=== PATIENT | male | born 1985 | race African-American/Black ===

== ENCOUNTER 2018-12-14 00:56 | Emergency (ER) | payer BC ==
--- NOTE | 2018-12-14 01:38 | ED ---
Skin Complaint - HPI Summary HPI Summary: Pt is a 33 y/o M presenting to the ED with a chief complaint of pain in his R thumb. He reports it being swollen and erythematous for the past two days. He has a hx of NIDDM but he does not frequently check his blood sugar. He denies any other medical history. - History of Current Complaint Chief Complaint: EDRashSkinAbscess Time Seen by Provider: 12/14/18 01:28 Stated Complaint: POSS INFECTION ON FINGER Hx Obtained From: Patient Onset/Duration: Started Days Ago, Still Present Skin Exposure Onset/Duration: Days Ago Timing: Constant, Lasting Days Onset Severity: Moderate Current Severity: Severe Pain Intensity: 9 Pain Scale Used: 0-10 Numeric Skin Location: Hand - R thumb Character: Swelling, Pain, Redness Aggravating Symptom(s): Touch Alleviating Symptom(s): Nothing Associated Signs & Symptoms: Negative Related History: Diabetes - Allergy/Home Medications Allergies/Adverse Reactions: Allergies Allergy/AdvReac Type Severity Reaction Status Date / Time No Known Allergies Allergy Verified 12/14/18 01:01 PMH/Surg Hx/FS Hx/Imm Hx Previously Healthy: Yes Endocrine/Hematology History: Reports: Hx Diabetes Cardiovascular History: Denies: Hx Hypertension Infectious Disease History: No Infectious Disease History: Denies: Traveled Outside the [place] in Last 30 Days - Family History Known Family History: Negative: Respiratory Disease - Social History Alcohol Use: None Hx Substance Use: No Substance Use Type: Reports: None Hx Tobacco Use: No Smoking Status (MU): Never Smoked Tobacco Review of Systems Positive: Myalgia - pain on R thumb Positive: Other - swelling and erythema to R thumb All Other Systems Reviewed And Are Negative: Yes Physical Exam - Summary Physical Exam Summary: VITAL SIGNS: Reviewed. GENERAL: Patient is a well-developed and nourished female who is lying comfortable in the stretcher. Patient is not in any acute respiratory distress. HEAD AND FACE: No signs of trauma. No ecchymosis, hematomas or skull depressions. No sinus tenderness. EYES: PERRLA, EOMI x 2, No injected conjunctiva, no nystagmus. EARS: Hearing grossly intact. Ear canals and tympanic membranes are within normal limits. MOUTH: Oropharynx within normal limits. NECK: Supple, trachea is midline, no adenopathy, no JVD, no carotid bruit, no c- spine tenderness, neck with full ROM. CHEST: Symmetric, no tenderness at palpation LUNGS: Clear to auscultation bilaterally. No wheezing or crackles. CVS: Regular rate and rhythm, S1 and S2 present, no murmurs or gallops appreciated. ABDOMEN: Soft, non-tender. No signs of distention. No rebound no guarding, and no masses palpated. Bowel sounds are normal. EXTREMITIES: FROM in all major joints, no edema, no cyanosis or clubbing. R thumb presents edema, tenderness, erythema, and is pruritic by the paronychia. NEURO: Alert and oriented x 3. No acute neurological deficits. Speech is normal and follows commands. SKIN: Dry and warm Triage Information Reviewed: Yes Vital Signs On Initial Exam: Initial Vitals Temp Pulse Resp BP Pulse Ox 97.9 F 86 16 125/87 98 12/14/18 00:58 12/14/18 00:58 12/14/18 00:58 12/14/18 00:58 12/14/18 00:58 Vital Signs Reviewed: Yes Procedures - Procedure Summary Procedure Summary: Incision and drainage of the R paronychia. About 3cc of pus came out of the wound. - Incision and Drainage R thumb Site: R thumb Anesthesia: Local, Lidocaine - 2% Instrument(s): Other - 15 blade Packing: Gauze Diagnostics - Vital Signs Vital Signs Temp Pulse Resp BP Pulse Ox 12/14/18 00:58 97.9 F 86 16 125/87 98 - Laboratory Lab Statement: Any lab studies that have been ordered have been reviewed, and results considered in the medical decision making process. Course/Dx - Course Course Of Treatment: Pt is a 33 y/o M presenting to the ED with a chief complaint of pain in his R thumb. He reports it being swollen and erythematous for the past two days. The pt's wound was incised and drained using a 15 blade and 2% local lidocaine. About 3 ccs of drainage came out of the site. The pt is stable to be discharged with a dx of paronychia and he is agreeable with this plan. - Diagnoses Provider Diagnoses: Paronychia Discharge - Sign-Out/Discharge Documenting (check all that apply): Patient Departure Patient Received Moderate/Deep Sedation with Procedure: No - Discharge Plan Condition: Stable Disposition: HOME Prescriptions: Clindamycin Cap(NF) [Clindamycin Cap 300 mg Cap(NF)] 300 mg PO Q6H #30 cap Ibuprofen TAB* [Motrin TAB* 800 MG] 800 mg PO Q6H PRN #30 tab PRN Reason: Pain Patient Education Materials: Paronychia (ED) Referrals: [facility] [Outside] - Attestation Statements Document Initiated by Scribe: Yes Documenting Scribe: Nisa Oakes Provider For Whom Scribe is Documenting (Include Credential): Lin Perry MD. Scribe Attestation: Nisa Fernández, scribed for Lin Perry MD. on 12/14/18 at 0215. Status of Scribe Document: Ready
[2018-12-14] MEDS ORDERED: Lidocaine 2% MPF* 2 ML VIAL ONE ×2 (01:41→01:42)
[2018-12-14] MEDS ORDERED: Clindamycin CAP* 150 MG PO ONE (02:09)
[2018-12-14] MEDS ORDERED: Ibuprofen TAB* 400 MG PO ONE (02:10)
[2018-12-14] MEDS ORDERED: oxyCODONE/Acetamin 5/325 MG* TAB PO ONE (02:34)
[2018-12-14] MEDS ORDERED: Ibuprofen TAB* 400 MG ONE (02:35)
[2018-12-14 02:52] VITALS: BP 0/0
--- NOTE | 2018-12-19 18:21 | PN ---
Progress Note - Progress Note Date of Service: 12/14/18 Note: Wound culture from 12/14 growing strep constellatus and klebsiella. Pt. on clindamycin which covers strep but no klebsiella. I called and spoke with pt. today at 1820. He states wound is improving and pain has resolved. He states he has a f.u apt. on Thursday for wound check. To continue clindamycin. Will not add additional antibx since infection improving.
== END 2018-12-14 02:55 | disposition home or self-care (01) ==
LOC: ED 00:56
DX: L03.011 Cellulitis of right finger (principal); B95.4 Other streptococcus as the cause of diseases classified elsewhere; B96.1 Klebsiella pneumoniae [K. pneumoniae] as the cause of diseases classified elsewhere; E11.9 Type 2 diabetes mellitus without complications
CPT/HCPCS: 10060; 87070; 87077; 87184; 87186; 87205; 87640; 87641; 99282; A9270-GY